=== PATIENT | female | born 1955 | race Caucasian/White ===

== ENCOUNTER 2019-04-19 17:24 | Inpatient (IN) | payer OTHER ==
[~2019-04-19] VITALS: Ht 177.8 cm; Wt 88.0 kg
--- NOTE | 2019-04-19 17:33 | NUR ---
[facility]IE 61 [facility] FOR HEAD[facility]HE, N/V SINCE YESTERDAY, WORSE NOW, BS [id number].HOOKED TO MONITOR, CHANGED TO HOSP GOWN, PROVIDED W WARM BLANKET, PATIENT AOx 4, BREATHING EVEN AND UNLABORED. AWAITING MD GARAY
--- NOTE | 2019-04-19 18:20 | NUR ---
DR FLEMING AT BEDSIDE
[2019-04-19] MEDS ORDERED: MORPHINE SULFATE INJ 2 MG/ML DISP.SYRIN IV ONE (18:30)
[2019-04-19] MEDS ORDERED: ONDANSETRON HCL/PF 4 MG/2 ML VIAL IVP ONE (18:30)
[2019-04-19] MEDS ORDERED: IV NS 0.9% 500 ML BAG IV ONE (18:30)
--- NOTE | 2019-04-19 18:30 | NUR ---
CALLED NURSING SUP FOR BED.
[2019-04-19 18:45] LABS: BASOPHILS % (AUTO) 0.9 % (0.0-2.0); EOSINOPHILS % (AUTO) 1.3 % (0.0-6.0); HEMATOCRIT 41 % (33-45); HEMOGLOBIN 13.3 g/dL (11.5-14.8); LYMPHOCYTES # (AUTO) 1.9 /CMM (0.8-4.8); LYMPHOCYTES % (AUTO) 33.3 % (20.0-44.0); MEAN CORPUSCULAR HGB CONC 33 g/dl (31.0-36.0); MEAN CORPUSCULAR VOLUME 94 fL (82-100); MONOCYTES # (AUTO) 0.4 /CMM (0.1-1.30); MONOCYTES % (AUTO) 7.6 % (2.0-12.0); NEUTROPHILS # (AUTO) 3.2 /CMM (1.8-8.9); NEUTROPHILS % (AUTO) 56.9 % (43.0-81.0); PLATELET COUNT (AUTO) 178 /CMM (150-450); RED BLOOD CELL COUNT(AUTO) 4.34 MIL/uL (4.0-5.2); WHITE BLOOD COUNT (AUTO) 5.7 K/uL (4.3-11.0)
[2019-04-19 18:56] LABS: CALCIUM, SERUM 8.8 mg/dL (8.5-10.1); CARBON DIOXIDE 33 mmol/L (21-32); CHLORIDE 102 mmol/L (98-107); CREATININE 0.8 mg/dL (0.6-1.3); GLUCOSE 185 mg/dL (74-106); POTASSIUM 4.4 mmol/L (3.5-5.1); SODIUM SERUM 140 mmol/L (136-145); UREA NITROGEN, BLOOD 12 mg/dL (7-18)
[2019-04-19 19:01] LABS: ALANINE AMINOTRANSFERASE 23 U/L (12-78); ALBUMIN 3.4 g/dL (3.4-5.0); ALKALINE PHOSPHATASE 75 U/L (46-116); ASPARTATE AMINOTRANSFERASE 14 U/L (15-37); BILIRUBIN,TOTAL 0.2 mg/dL (0.2-1.0); TOTAL PROTEIN, SERUM 6.8 g/dL (6.4-8.2)
[2019-04-19] MEDS ORDERED: GABA-534 PO ×2 (19:06)
[2019-04-19] MEDS ORDERED: TAMS-12 PO (19:06)
[2019-04-19] MEDS ORDERED: TRAZ-257 PO (19:06)
[2019-04-19] MEDS ORDERED: METF-442 PO (19:06)
[2019-04-19] MEDS ORDERED: DULO60CA64 PO (19:06)
[2019-04-19] MEDS ORDERED: APIX5TAB PO (19:06)
[2019-04-19] MEDS ORDERED: CLON0.5T4 PO (19:06)
[2019-04-19] MEDS ORDERED: METO25TA4 PO (19:06)
[2019-04-19] MEDS ORDERED: TIZA4TAB5 PO (19:06)
[2019-04-19] MEDS ORDERED: IOHEXOL-350 100 ML VIAL IV ONE (19:13)
[2019-04-19] MEDS ORDERED: CT SWABBABLE VALVE TRANS SET 1 EA INFUS.SET MC ONE (19:13)
[2019-04-19] MEDS ORDERED: IV NS 0.9% 250 ML IV ONE (19:13)
--- NOTE | 2019-04-19 19:20 | NUR ---
PT RECEIVED FROM DIEGO MENEZES FOR COY. PT IN BED [id number]. IV INSERTION IN PROGRESS
--- NOTE | 2019-04-19 19:32 | NUR ---
NURSING SUP GAVE TELE BED 312-1.
[2019-04-19] MEDS ORDERED: ONDANSETRON HCL/PF 4 MG/2 ML VIAL ONE (19:37)
[2019-04-19] MEDS ORDERED: MORPHINE SULFATE INJ 4 MG/ML DISP.SYRIN ONE (19:37)
--- NOTE | 2019-04-19 19:40 | NUR ---
WHEELED OUT VIA [facility]NEY FOR CT SCAN
--- NOTE | 2019-04-19 20:28 | NUR ---
PT AMBULATED TO BATHROOM ON HER OWN WITHOUT ASSIST ON STEADY GAIT
--- NOTE | 2019-04-19 21:06 | NUR ---
CALLED [facility] FOR CT READ
[2019-04-19] MEDS ORDERED: DEXAMETHASONE SOD PHOSPHATE 10 MG/ML VIAL ONE (21:11)
[2019-04-19] MEDS ORDERED: PROCHLORPERAZINE EDISYLATE 10 MG/2 ML VIAL ONE (21:11)
--- NOTE | 2019-04-19 21:19 | NUR ---
PT STILL COMPLAINING OF HEADACHE. MD MADE AWARE. AND RECEIVED ORDER OT GIVE DECADRON 10MG AND COPAZINE 10MG IV BOTH X 1. ORDERS NOTED AND CARRIED OUT.
--- NOTE | 2019-04-19 21:29 | NUR ---
PAGED EPIC TEST DEVELOPMENT ENGINEER
[2019-04-19] MEDS ORDERED: DEXAMETHASONE SOD PHOSPHATE 10 MG/ML VIAL IV ONE (21:30)
[2019-04-19] MEDS ORDERED: PROCHLORPERAZINE EDISYLATE 10 MG/2 ML VIAL IVP ONE (21:30)
[2019-04-19] MEDS ORDERED: TRAZODONE 50 MG TABLET PO ONE (22:00)
[2019-04-19] MEDS ORDERED: MAGNESIUM HYDROXIDE 30 ML UDC PO PRN (22:00)
[2019-04-19] MEDS ORDERED: HYDROCODONE/APAP 5/325MG 1 EACH TABLET PO PRN (22:00)
[2019-04-19] MEDS ORDERED: ACETAMINOPHEN 325 MG TABLET PO PRN ×2 (22:00)
[2019-04-19] MEDS ORDERED: ZOLPIDEM TARTRATE 5 MG TABLET PO PRN (22:00)
[2019-04-19] MEDS ORDERED: ONDANSETRON HCL/PF 4 MG/2 ML VIAL IVP PRN ×2 (22:00)
[2019-04-19] MEDS ORDERED: METOCLOPRAMIDE HCL 10 MG/2 ML VIAL IV PRN (22:00)
[2019-04-19] MEDS ORDERED: IV NS 0.9% 1,000 ML IV PRN (22:00)
[2019-04-19] MEDS ORDERED: MAG HYDROX/AL HYDROX/SIMETH 30 ML UDC PO PRN (22:00)
[2019-04-19] MEDS ORDERED: KETOROLAC TROMETHAMINE INJ 30 MG/ML VIAL IV PRN (22:00)
[2019-04-19] MEDS ORDERED: Z GUARD REMEDY 2 OZ OINT TP PRN (22:00)
[2019-04-19] MEDS ORDERED: clonazePAM 0.5 MG TABLET PO PRN (22:00)
--- NOTE | 2019-04-19 22:01 | NUR ---
REPORT GIVEN TO DIEGO HARPER FOR COY.
--- NOTE | 2019-04-19 22:41 | NUR ---
PT TRANSPORTED TO UNIT ON [facility] WITH EMT AND RN AT BEDSIDE W/ ACLS PROTOCOL. NAD NOTED [facility]. PT AMBULATED FROM [place] TO BED.
--- NOTE | 2019-04-19 22:45 | NUR ---
RN OPEN NOTES RECEIVED PATIENT FROM ER VIA [facility]HE[facility]. A/OX4. NO SIGNS OF DISTRESS OR DISCOMFORT. BREATHING EVEN AND UNLABORED. IV ACCESS IN RAC, PATENT AND INTACT, NO SIGNS OF REDNESS OR INFILTRATION. ATTACHED TO TELE MONITOR WITH SR 67 NOTED. ORIENTED PATIENT TO UNIT AND ROOM. NO SKIN ISSUES NOTED. BED IN LOW LOCKED POSITION WITH SIDE RAILS X2. CALL LIGHT WITHIN REACH. WILL CONTINUE TO MONITOR.
[2019-04-19 23:00] VITALS: BP 126/76
[2019-04-19] MEDS: METOPROLOL SUCCINATE 25 MG TAB.SR.24H PO SCH (23:00)
[2019-04-19] MEDS: GABAPENTIN 300 MG CAPSULE PO SCH (23:54)
[2019-04-19] MEDS ORDERED: TRAZODONE 50 MG TABLET PO SCH (23:55)
[2019-04-19] MEDS: ATORVASTATIN 10 MG TABLET PO SCH (23:55)
[2019-04-19] MEDS: TIZANIDINE HCL 4 MG TABLET PO SCH (23:55)
[2019-04-19] MEDS: DULOXETINE HCL 30 MG CAPSULE.DR PO SCH (23:56)
[2019-04-20 04:00] VITALS: BP 114/68
--- NOTE | 2019-04-20 06:52 | NUR ---
RN CLOSING NOTES PATIENT RESTING IN BED, EASILY AROUSABLE. A/OX4. NO SIGNS OF DISTRESS OR DISCOMFORT. BREATHING EVEN AND UNLABORED. IV ACCESS IN RAC WITH NS INFUSING, PATENT AND INTACT, NO SIGNS OF REDNESS OR INFILTRATION. ON TELE MONITOR WITH SR 86 NOTED. ALL NEEDS MET. NO SIGNIFICANT CHANGES THROUGH THE NIGHT. BED IN LOW LOCKED POSITION WITH SIDE RAILS X2. CALL LIGHT WITHIN REACH. WILL ENDORSE TO AM SHIFT FOR COY.
[2019-04-20 06:54] LABS: BASOPHILS % (AUTO) 0.1 % (0.0-2.0); HEMATOCRIT 42 % (33-45); HEMOGLOBIN 13.8 g/dL (11.5-14.8); LYMPHOCYTES # (AUTO) 0.6 /CMM (0.8-4.8); LYMPHOCYTES % (AUTO) 10.6 % (20.0-44.0); MEAN CORPUSCULAR HGB CONC 33 g/dl (31.0-36.0); MEAN CORPUSCULAR VOLUME 94 fL (82-100); MONOCYTES # (AUTO) 0.1 /CMM (0.1-1.30); MONOCYTES % (AUTO) 0.8 % (2.0-12.0); NEUTROPHILS # (AUTO) 5.3 /CMM (1.8-8.9); NEUTROPHILS % (AUTO) 88.5 % (43.0-81.0); PLATELET COUNT (AUTO) 168 /CMM (150-450); RED BLOOD CELL COUNT(AUTO) 4.45 MIL/uL (4.0-5.2)
[2019-04-20 07:09] LABS: CALCIUM, SERUM 9.1 mg/dL (8.5-10.1); CREATININE 0.7 mg/dL (0.6-1.3); POTASSIUM 5.2 mmol/L (3.5-5.1)
--- NOTE | 2019-04-20 07:49 | NUR ---
DUPLICATOR PUNCH OPERATOR OPENING NOTE PATIENT IN BED RESTING COMFORTABLY. PATIENT IN NO ACUTE DISTRESS. NO SOB NOTED. PATIENT BREATHING IS EVEN AND UNLABORED. PATIENT ON CARDIAC MONITORING READING SINUS BRADYCARDIA HR 52. SAFETY PRECAUTIONS IN PLACE. PATIENT BED IS LOCKED AND IN LOWEST POSITION. CALL LIGHT WITHIN REACH. WILL CONTINUE TO MONITOR.
[2019-04-20 08:00] VITALS: BP 104/61
[2019-04-20] MEDS ORDERED: METFORMIN 500 MG TABLET PO SCH (09:00)
[2019-04-20] MEDS: METOPROLOL SUCCINATE 25 MG TAB.SR.24H PO SCH ×2 (09:00→21:11)
[2019-04-20] MEDS: GABAPENTIN 300 MG CAPSULE PO SCH ×3 (09:41→21:12)
[2019-04-20] MEDS: TAMSULOSIN 0.4 MG CAP.SR.24H PO SCH (09:41)
--- NOTE | 2019-04-20 09:46 | NUR ---
MS RN NOTE PATIENT REFUSED METFORMIN. ALSO HAD CTA YESTERDAY PER RADIOLOGY AND PROTOCOL HOLD FOR 48 HOURS AFTER.
[2019-04-20] MEDS: APIXABAN 5 MG TABLET PO SCH ×2 (09:54→16:51)
[2019-04-20] MEDS ORDERED: DEXTROSE 50%-WATER 50 ML DISP.SYRIN IV PRN (14:00)
[2019-04-20 16:11] VITALS: BP 146/79
[2019-04-20] MEDS: INSULIN REGULAR, HUMAN 100 UNIT/ML 3 ML VIAL SQ PRN ×2 (16:50→21:24)
[2019-04-20] MEDS: BLOOD SUGAR DIAGNOSTIC 1 EACH STRIP IN SCH ×2 (16:52→21:12)
[2019-04-20] MEDS: MORPHINE SULFATE INJ 4 MG/ML DISP.SYRIN IV PRN ×2 (16:53→21:35)
--- NOTE | 2019-04-20 18:33 | NUR ---
MS RN CLOSING NOTE PATIENT IN BED RESTING COMFORTABLY. PATIENT IN NO ACUTE DISTRESS. NO SOB NOTED. PATIENT BREATHING IS EVEN AND UNLABORED. PATIENT FAMILY AT THE BEDSIDE. PATIENT NEEDS AND CONCERNS ADDRESSED. PATIENT KEPT CLEAN AND DRY THROUGHOUT SHIFT. PATIENT SAFETY PRECAUTIONS IN PLACE. WILL ENDORSE CARE TO PM SHIFT FOR COY.
--- NOTE | 2019-04-20 19:30 | NUR ---
RN NOTES RECEIVED PT. AWAKE ON BED, A/OX4, AMBULATORY, COMPLAINED OF HEADACHE BUT PT.JUST RECEIVED HER PAIN MEDICATION.. NOT IN DISTRESS, CALL LIGHT WITHIN REACH, [id number], CONTINUE TO MONITOR
[2019-04-20 20:00] VITALS: BP 130/60
[2019-04-20] MEDS: ATORVASTATIN 10 MG TABLET PO SCH (21:11)
[2019-04-20] MEDS: TIZANIDINE HCL 4 MG TABLET PO SCH (21:11)
[2019-04-20] MEDS: DULOXETINE HCL 30 MG CAPSULE.DR PO SCH (21:11)
--- NOTE | 2019-04-20 21:25 | NUR ---
RN NOTES SPOKE TO MAL ELMORE-JIN AND GOT AN ORDER OF TRAZODONE 200MG PO PRN FOR SLEEPING, ORDER NOTED AND CARRIED OUT
--- NOTE | 2019-04-20 21:30 | NUR ---
RN NOTES COMPLAINED OF TERRIBLE HEADACHE- MORPHINE 4 MG IV GIVEN ORDERED, V/S STABLE
[2019-04-20] MEDS ORDERED: TRAZODONE 50 MG TABLET PO SCH (22:00)
[2019-04-20] MEDS ORDERED: TRAZODONE 50 MG TABLET PO PRN (22:00)
[2019-04-21] MEDS: MORPHINE SULFATE INJ 4 MG/ML DISP.SYRIN IV PRN ×3 (02:05→12:06)
--- NOTE | 2019-04-21 02:13 | NUR ---
RN NOTES COMPLAINED OF TERRIBLE HEADACHE- MORPHINE 4 MG IV GIVEN ORDERED, V/S STABLE
--- NOTE | 2019-04-21 02:42 | NUR ---
RN NOTES PT. ASKED FOR HER TRAZODONE- TRAZODONE 200MG PO GIVEN ORDERED, V/S STABLE
[2019-04-21] MEDS: INSULIN REGULAR, HUMAN 100 UNIT/ML 3 ML VIAL SQ PRN ×2 (06:49→12:04)
[2019-04-21] MEDS: BLOOD SUGAR DIAGNOSTIC 1 EACH STRIP IN SCH ×2 (06:54→12:03)
--- NOTE | 2019-04-21 06:59 | NUR ---
RN NOTES COMPLAINED OF TERRIBLE HEADACHE- MORPHINE 4 MG IV GIVEN ORDERED, V/S STABLE, MORNING CARE RENDERED, CALL LIGHT WITHIN REACH, [id number], PT. NEEDS ATTENDED
--- NOTE | 2019-04-21 07:28 | NUR ---
MS RN OPENING NOTE PATIENT IN BED RESTING COMFORTABLY. PATIENT IN NO ACUTE DISTRESS. NO SOB NOTED. PATIENT BREATHING IS EVEN AND UNLABORED. PATIENT STATES NO HEADACHES AT THIS TIME. SAFETY PRECAUTIONS IN PLACE. PATIENT BED IS LOCKED AND IN LOWEST POSITION. CALL LIGHT WITHIN REACH. WILL CONTINUE TO MONITOR.
[2019-04-21] MEDS: APIXABAN 5 MG TABLET PO SCH (08:21)
[2019-04-21] MEDS: TAMSULOSIN 0.4 MG CAP.SR.24H PO SCH (08:22)
[2019-04-21] MEDS: GABAPENTIN 300 MG CAPSULE PO SCH (08:22)
[2019-04-21] MEDS: METOPROLOL SUCCINATE 25 MG TAB.SR.24H PO SCH (08:23)
--- NOTE | 2019-04-21 08:24 | NUR ---
MS RN NOTE HELD METOPROLOL 0900 DOSE, WITH BP 133/59 AND LOW HR 50.
[2019-04-21 08:26] VITALS: BP 139/57
[2019-04-21] MEDS ORDERED: HYDR-4354 PO (14:10)
--- NOTE | 2019-04-21 16:03 | NUR ---
MS IT ARCHITECTURE ANALYST NOTE PATIENT MEDICALLY STABLE FOR DISCHARGE. PATIENT IN NO ACUTE DISTRESS. NO SOB NOTED. PATIENT BREATHING IS EVEN AND UNLABORED. PATIENT VITAL SIGNS WNL. DC INSTRUCTIONS PROVIDED TO PATIENT. PATIENT VERBALIZED UNDERSTANDING. PATIENT ACKNOWLEDGED AND HAS ALL BELONGINGS WITH PATIENT. PATIENT SIGNED BELONGINGS LIST. PATIENT ID BAND REMOVED. IV REMOVED. SKIN ASSESSED. NO NEW SKIN BREAKDOWN NOTED. PATIENT KEPT CLEAN, DRY, AND COMFORTABLE THROUGHOUT SHIFT. PATIENT NEEDS AND CONCERNS ADDRESSED. PATIENT GOING BACK HOME TO INDEPENDENT ASSISTED LIVING HOME WITH BOYFRIEND BY CAR. MD AWARE OF DISCHARGE.
--- NOTE | 2019-04-22 08:11 | NUR ---
FROZEN FOOD DEPARTMENT MANAGER received consult on Wednesday 04/19 requesting for Advance Directive for the pt. FROZEN FO[employer] DEPARTMENT MANAGER unable to provide information since pt. was discharged on 04/21/2019.
== END 2019-04-21 16:00 | DRG 69 ==
LOC: ER 17:29 → TELE 22:06 → MED 22:16 → TELE 22:58 → MED 04-20 08:14
PROVIDERS: ADMIT Nurse Practitioner Acute Care; ATTEND Nurse Practitioner Acute Care
DX: G45.9 Transient cerebral ischemic attack, unspecified (principal); D68.69 Other thrombophilia; E11.9 Type 2 diabetes mellitus without complications; F41.9 Anxiety disorder, unspecified; I10 Essential (primary) hypertension; I48.91 Unspecified atrial fibrillation; Z79.84 Long term (current) use of oral hypoglycemic drugs; G43.909 Migraine, unspecified, not intractable, without status migrainosus; J44.9 Chronic obstructive pulmonary disease, unspecified; M81.0 Age-related osteoporosis without current pathological fracture; E66.9 Obesity, unspecified; Z68.27 Body mass index [BMI] 27.0-27.9, adult; R29.700 NIHSS score 0; Z79.01 Long term (current) use of anticoagulants; Z86.711 Personal history of pulmonary embolism; Z86.73 Personal history of transient ischemic attack (TIA), and cerebral infarction without residual deficits; Z98.84 Bariatric surgery status; Z96.611 Presence of right artificial shoulder joint; R40.2413 Glasgow coma scale score 13-15, at hospital admission
CPT/HCPCS: 36415; 70496-TC; 70498-TC; 71045-TC; 80048-TC; 80061-TC; 80076-TC; 82962-TC; 83735-TC; 84100-TC; 84484-TC; 85025-TC; 85730-TC; 86850-TC; 87081-TC; G0378; J0780; J1100; J1815; J1885; J2270; J2405; J7030; J7040; J7050; Q9967